=== PATIENT | female | born 1985 | race Caucasian/White ===

== ENCOUNTER 2017-10-08 13:35 | Emergency (ER) | payer OTHER ==
[~2017-10-08] VITALS: Ht 154.9 cm; Wt 47.6 kg
[~2017-10-08 13:35] MED LIST: ALBU90I INH; ALBU90OI INH; AMIT25 PO; AMOX500 PO; Amoxicillin500 MG PO; BUTASPCAFT; Bactrim Ds Tab1 EACH PO; CEPH500 PO; CETI5 PO; CITA20; CITA20 PO; CLIN150 PO; CODGUAEL PO; DOXY100 PO; DULO60 PO; ERYT.5TO OD; ESCI20; ESCI20 PO; FAMO20 PO; FLUO10; HYDACE10B PO; HYDACE5 PO; IBUP600 PO; IBUP800 PO; KETO10 PO; Keflex500 MG PO; LAMO100 PO; LAMO50 PO; LORA1 PO; MEDR10 PO; MEDR150I; MEDR150I IM; MULVITA PO; MULVITMINE; MULVITMINE PO; Macrobid 100 M100 MG PO; NAPR500 PO; NAPR500EC PO; OXYACE5T PO; PANT40; PENVK500 PO; POTA20LUD PO; POTCHL10ER PO; PREN-16 PO; PRENATAL CAPLE1 EACH PO; PRODEXEL PO; PROM25 PO; PROM25S PR; Percocet 5-3251 EACH PO; Prilosec Otc20 MG PO; QUET200 PO; RANI150; RXOXYACE PO; SERT50 PO; SULF10OPSA OS; SULFAMETHOXAZOLE PO; SULTRIDS PO; TRAM50 PO; TRIMETHOPRIM PO; VICODIN; Veetids 500500 MG PO; Verotin-Gr Cap1 EACH PO; [UNRECOGNIZED DRUG - OTHER]; [UNRECOGNIZED DRUG - OTHER] PO
[2017-10-08] MEDS ORDERED: Cleocin HCl150 MG PO (13:48)
== END 2017-10-08 13:59 | disposition home or self-care (01) ==
LOC: ER 13:35
DX: K02.9 Dental caries, unspecified (principal); K04.7 Periapical abscess without sinus; F17.200 Nicotine dependence, unspecified, uncomplicated; Z91.030 Bee allergy status
CPT/HCPCS: 99282

== ENCOUNTER 2018-01-23 20:35 | Emergency (ER) | payer OTHER ==
[~2018-01-23] VITALS: Ht 154.9 cm; Wt 47.6 kg
[~2018-01-23 20:35] MED LIST changes: +Cleocin HCl150 MG PO
[2018-01-23 21:42] LABS: Source, Urine Clean Catch
[2018-01-23 21:45] LABS: Bilirubin, Urine Neg (Neg); Blood, Urine Neg (Neg); Glucose Qualitative, Urine Neg (Neg); Ketones, Urine Neg (Neg); Leukocyte Esterase, Urine 2+ (Neg); Nitrite, Urine Neg (Neg); Protein, Urine Neg (Neg); Urobilinogen, Urine NORM (Normal)
[2018-01-23 21:51] LABS: Appearance, Urine Clear (Clear); Color, Urine Yellow (P-Yellow)
[2018-01-23 21:53] LABS: Bacteria Rare /hpf; Red Blood Cells, Urine Not Seen /hpf (0-2); Squamous Epithelial Cells Mod /hpf (Few)
== END 2018-01-23 22:15 | disposition home or self-care (01) ==
LOC: ER 20:35
PROVIDERS: Physician Assistant
DX: R11.2 Nausea with vomiting, unspecified (principal); R51 Headache; F17.200 Nicotine dependence, unspecified, uncomplicated; Z91.030 Bee allergy status
CPT/HCPCS: 81001; 81025; 87086; 99284; J1885

== ENCOUNTER → 2019-02-21 | Outpatient (CLI) | payer OTHER | END | disposition home or self-care (01) | LOC: LAB SHORT 08:35 → LAB EV 08:35 | DX: R51 Headache (principal) | CPT/HCPCS: 85651 ==

== ENCOUNTER → 2019-10-28 | Outpatient (CLI) | payer BC | END | disposition home or self-care (01) | LOC: LAB SHORT 12:18 → LAB EV 12:18 | DX: L01.00 Impetigo, unspecified (principal) | CPT/HCPCS: 87070; 87075; 87205 ==

== ENCOUNTER → 2020-05-26 | Outpatient (CLI) | payer BC, OTHER ==
[2020-05-26 09:56] LABS: BASOPHILS ABSOLUTE AUTO 0.05 K/mm3 (0.00-0.23); BASOPHILS PERCENT AUTO 1 % (0-2); EOSINOPHILS ABSOLUTE AUTO 0.11 K/mm3 (0.00-0.68); EOSINOPHILS PERCENT AUTO 2 % (0-6); Hematocrit 39.4 % (33.0-51.0); Hemoglobin 13.5 g/dL (11.5-16.0); IMMATURE GRAN ABSOLUTE AUTO 0.01 K/mm3 (0.00-0.10); IMMATURE GRAN PERCENT AUTO 0 % (0-1); LYMPHOCYTES ABSOLUTE AUTO 1.54 K/mm3 (0.84-5.20); LYMPHOCYTES PERCENT AUTO 28 % (21-46); MONOCYTES PERCENT AUTO 9 % (4-13); Mean Corpuscular HGB 31.7 pg (26.0-34.0); Mean Corpuscular HGB Conc 34.3 g/dL (31.5-36.5); Mean Corpuscular Volume 93 fL (80-100); Mean Platelet Volume 10.2 fL (9.1-12.4); NEUTROPHILS ABSOLUTE AUTO 3.37 K/mm3 (1.96-9.15); NEUTROPHILS PERCENT AUTO 60 % (41-73); Platelet Count 186 K/mm3 (150-400); RDW Coefficient Variation 12.3 % (11.7-14.2); RDW Standard Deviation 41.6 fL (35.1-46.3); Red Blood Cell Count 4.26 M/mm3 (3.80-5.20); White Blood Cell Count 5.58 K/mm3 (4.00-11.30)
== END | disposition home or self-care (01) ==
LOC: LAB SHORT 09:49 → PLD 09:49
PROVIDERS: Family Medicine
DX: N64.3 Galactorrhea not associated with childbirth (principal); R53.83 Other fatigue
CPT/HCPCS: 84146; 84443; 85025

== ENCOUNTER → 2021-09-27 | Outpatient (CLI) | payer BC, OTHER ==
[2021-09-27 14:56] LABS: BASOPHILS ABSOLUTE AUTO 0.03 K/mm3 (0.00-0.23); BASOPHILS PERCENT AUTO 0 % (0-2); EOSINOPHILS ABSOLUTE AUTO 0.09 K/mm3 (0.00-0.68); EOSINOPHILS PERCENT AUTO 1 % (0-6); Hematocrit 40.6 % (33.0-51.0); Hemoglobin 13.5 g/dL (11.5-16.0); IMMATURE GRAN ABSOLUTE AUTO 0.02 K/mm3 (0.00-0.10); IMMATURE GRAN PERCENT AUTO 0 % (0-1); LYMPHOCYTES ABSOLUTE AUTO 1.75 K/mm3 (0.84-5.20); LYMPHOCYTES PERCENT AUTO 24 % (21-46); MONOCYTES ABSOLUTE AUTO 0.58 K/mm3 (0.16-1.47); MONOCYTES PERCENT AUTO 8 % (4-13); Mean Corpuscular HGB 31.2 pg (26.0-34.0); Mean Corpuscular HGB Conc 33.3 g/dL (31.5-36.5); Mean Corpuscular Volume 94 fL (80-100); Mean Platelet Volume 10.6 fL (9.1-12.4); NEUTROPHILS ABSOLUTE AUTO 4.75 K/mm3 (1.96-9.15); NEUTROPHILS PERCENT AUTO 66 % (41-73); Platelet Count 199 K/mm3 (150-400); RDW Coefficient Variation 12.3 % (11.7-14.2); RDW Standard Deviation 42.5 fL (35.1-46.3); Red Blood Cell Count 4.33 M/mm3 (3.80-5.20); White Blood Cell Count 7.22 K/mm3 (4.00-11.30)
[2021-09-27 15:14] LABS: Alanine Aminotransfer (ALT/SGP 23 U/L (12-78); Albumin, Blood 4.3 g/dL (3.4-5.0); Albumin/Globulin Ratio 1.4 (0.8-1.8); Alk Phos 32 U/L (40-126); Anion Gap 11 mmol/L (6-16); Aspartate Aminotrans (AST/SGOT 17 U/L (12-37); Bilirubin, Total 0.5 mg/dL (0.1-1.0); Blood Urea Nitrogen 8 mg/dL (8-24); Bun/Creatinine Ratio 11.6 (12.0-20.0); CO2, Blood 25 mmol/L (21-32); Calcium, Blood 9.2 mg/dL (8.5-10.1); Chloride, Blood 105 mmol/L (98-108); Creatinine, Blood 0.69 mg/dL (0.40-1.00); Free Thyroxine 1.07 ng/dL (0.70-1.60); Globulin, Blood 3.1 g/dL (2.2-4.0); Glomerular Filtration Rate >60 (60-); Glucose, Blood 84 mg/dL (70-99); Potassium, Blood 4.3 mmol/L (3.5-5.5); Sodium, Blood 141 mmol/L (136-145); Thyroid Stimulating Hormone 0.813 uIU/mL (0.360-4.800); Total Protein, Blood 7.4 g/dL (6.4-8.2)
== END ==
LOC: LAB SHORT 14:47
PROVIDERS: General Practice
DX: R53.81 Other malaise (principal); R20.9 Unspecified disturbances of skin sensation
CPT/HCPCS: 80053; 84439; 84443; 85025

== ENCOUNTER → 2022-09-04 | Outpatient (CLI) | payer OTHER ==
[~2022-09-04] MED LIST changes: +PRENATAL TABLE1 EAC2 PO
[2022-09-07 06:10] LABS: HSV-1 DNA Negative (Negative); HSV-2 DNA Positive (Negative)
== END | disposition home or self-care (01) ==
LOC: LAB SHORT 15:10 → LAB 15:10
PROVIDERS: Physician Assistant
DX: L03.011 Cellulitis of right finger (principal)
CPT/HCPCS: 87070; 87075; 87205; 87529

== ENCOUNTER 2023-02-14 08:08 | Inpatient (IN) | payer OTHER ==
[~2023-02-14] VITALS: Ht 157.5 cm; Wt 56.2 kg
[2023-02-14] VITALS (27 sets, daily range): BP systolic 88–120; BP diastolic 51–88
[2023-02-14 08:41] LABS: BASOPHILS ABSOLUTE AUTO 0.06 K/mm3 (0.00-0.23); BASOPHILS PERCENT AUTO 1 % (0-2); EOSINOPHILS ABSOLUTE AUTO 0.11 K/mm3 (0.00-0.68); EOSINOPHILS PERCENT AUTO 1 % (0-6); Hematocrit 35.3 % (33.0-51.0); IMMATURE GRAN ABSOLUTE AUTO 0.16 K/mm3 (0.00-0.10); IMMATURE GRAN PERCENT AUTO 2 % (0-1); LYMPHOCYTES ABSOLUTE AUTO 2.24 K/mm3 (0.84-5.20); LYMPHOCYTES PERCENT AUTO 21 % (21-46); MONOCYTES ABSOLUTE AUTO 0.79 K/mm3 (0.16-1.47); MONOCYTES PERCENT AUTO 7 % (4-13); Mean Corpuscular HGB 33.3 pg (26.0-34.0); Mean Corpuscular Volume 98 fL (80-100); Mean Platelet Volume 10.3 fL (9.1-12.4); NEUTROPHILS ABSOLUTE AUTO 7.28 K/mm3 (1.96-9.15); NEUTROPHILS PERCENT AUTO 68 % (41-73); Platelet Count 143 K/mm3 (150-400); RDW Coefficient Variation 13.5 % (11.7-14.2); RDW Standard Deviation 48.5 fL (35.1-46.3); White Blood Cell Count 10.64 K/mm3 (4.00-11.30)
[2023-02-14] MEDS ORDERED: OMEP20ER PO (08:51)
[2023-02-14] MEDS ORDERED: Calcium Carbon500 MG PO (08:51)
[2023-02-14] MEDS ORDERED: IRON18 MG PO (08:51)
[2023-02-14] MEDS ORDERED: ACYC400 PO (09:50)
--- NOTE | 2023-02-14 12:12 | NUR ---
02/14/23 1212 SebastienOlena M VIABLE MALE DELIVERED VIA REPEAT SECTION AT 1157. CORD SEGMENT COLLECTED FOR CORD GASSES AND GIVEN TO RT DAYAMI. CORD BLOOD COLLECTED FOR TYPING AND GIVEN TO SHAKIRA LYNN RN. APGARS 9/9. 7-1 LBS/3205 GRAMS, 20 IN LONG, 13.75 IN HEAD, 12.75 IN CHEST.
[2023-02-14 12:13] LABS: PCO2 Cord - Arterial 60.2 mmHg (40-50); PO2 Cord - Arterial < 16 mmHg (16-20); pH Cord - Arterial 7.26 (7.28-7.35)
[2023-02-14 12:16] LABS: PO2 Cord - Venous 33.8 mmHg (28-32); pH Umbilical Cord - Venous 7.34 (7.26-7.35)
--- NOTE | 2023-02-14 19:17 | NUR ---
REPORT TO ONCOMING SHIFT. PT DOING WELL AND HAS NO COMPLAINTS. VSS. PAIN WELL CONTROLLED WITH MEDS. LOCHIA SCANT.
[2023-02-15 01:00] VITALS: BP 97/58
[2023-02-15 05:51] VITALS: BP 87/51
[2023-02-15 06:30] LABS: BASOPHILS ABSOLUTE AUTO 0.04 K/mm3 (0.00-0.23); BASOPHILS PERCENT AUTO 0 % (0-2); EOSINOPHILS ABSOLUTE AUTO 0.08 K/mm3 (0.00-0.68); EOSINOPHILS PERCENT AUTO 1 % (0-6); Hematocrit 29.3 % (33.0-51.0); Hemoglobin 9.8 g/dL (11.5-16.0); IMMATURE GRAN ABSOLUTE AUTO 0.09 K/mm3 (0.00-0.10); IMMATURE GRAN PERCENT AUTO 1 % (0-1); LYMPHOCYTES ABSOLUTE AUTO 1.97 K/mm3 (0.84-5.20); LYMPHOCYTES PERCENT AUTO 14 % (21-46); MONOCYTES ABSOLUTE AUTO 1.08 K/mm3 (0.16-1.47); MONOCYTES PERCENT AUTO 8 % (4-13); Mean Corpuscular HGB 33.2 pg (26.0-34.0); Mean Corpuscular HGB Conc 33.4 g/dL (31.5-36.5); Mean Corpuscular Volume 99 fL (80-100); Mean Platelet Volume 10.5 fL (9.1-12.4); NEUTROPHILS ABSOLUTE AUTO 10.41 K/mm3 (1.96-9.15); NEUTROPHILS PERCENT AUTO 76 % (41-73); Platelet Count 148 K/mm3 (150-400); RDW Coefficient Variation 13.6 % (11.7-14.2); RDW Standard Deviation 49.7 fL (35.1-46.3); Red Blood Cell Count 2.95 M/mm3 (3.80-5.20); White Blood Cell Count 13.67 K/mm3 (4.00-11.30)
[2023-02-15 08:39] VITALS: BP 93/54
[2023-02-15 11:00] VITALS: BP 97/48
[2023-02-15] MEDS ORDERED: IBU800 MG PO (14:56)
[2023-02-15] MEDS ORDERED: PROM25 PO (14:57)
[2023-02-15] MEDS ORDERED: Percocet 5-3251 EACH PO (14:57)
== END 2023-02-15 15:20 | disposition home or self-care (01) | DRG 784 ==
LOC: BC 08:08
PROVIDERS: ADMIT Obstetrics & Gynecology
PROC: 0UN70ZZ Release Bilateral Fallopian Tubes, Open Approach (ICD-10-PCS; 2023-02-14)
PROC: 4A033R1 Measurement of Arterial Saturation, Peripheral, Percutaneous Approach (ICD-10-PCS; 2023-02-14)
PROC: 10D00Z1 Extraction of Products of Conception, Low, Open Approach (ICD-10-PCS; principal; 2023-02-14 11:15)
PROC: 0UB70ZZ Excision of Bilateral Fallopian Tubes, Open Approach (ICD-10-PCS; 2023-02-14 11:15)
DX: O34.211 Maternal care for low transverse scar from previous cesarean delivery (principal); O98.32 Other infections with a predominantly sexual mode of transmission complicating childbirth; Z3A.39 39 weeks gestation of pregnancy; Z37.0 Single live birth; O34.83 Maternal care for other abnormalities of pelvic organs, third trimester; N73.6 Female pelvic peritoneal adhesions (postinfective); A60.09 Herpesviral infection of other urogenital tract; Z30.2 Encounter for sterilization
CPT/HCPCS: 36415; 82803; 85025; 86850; 86900; 86901; 86923; 88302; A9270; J0690; J1885; J2210; J2590; J2704; J2765; J3010; J7120

== ENCOUNTER → 2023-02-18 | Outpatient (CLI) | payer OTHER ==
[~2023-02-18] MED LIST changes: +ACYC400 PO; +Calcium Carbon500 MG PO; +IBU800 MG PO; +IRON18 MG PO; +OMEP20ER PO
[2023-02-18 16:51] LABS: BASOPHILS ABSOLUTE AUTO 0.04 K/mm3 (0.00-0.23); BASOPHILS PERCENT AUTO 1 % (0-2); EOSINOPHILS ABSOLUTE AUTO 0.21 K/mm3 (0.00-0.68); EOSINOPHILS PERCENT AUTO 3 % (0-6); Hematocrit 29.2 % (33.0-51.0); Hemoglobin 9.7 g/dL (11.5-16.0); IMMATURE GRAN ABSOLUTE AUTO 0.05 K/mm3 (0.00-0.10); IMMATURE GRAN PERCENT AUTO 1 % (0-1); LYMPHOCYTES ABSOLUTE AUTO 1.97 K/mm3 (0.84-5.20); LYMPHOCYTES PERCENT AUTO 24 % (21-46); MONOCYTES ABSOLUTE AUTO 0.51 K/mm3 (0.16-1.47); MONOCYTES PERCENT AUTO 6 % (4-13); Mean Corpuscular HGB 32.8 pg (26.0-34.0); Mean Corpuscular HGB Conc 33.2 g/dL (31.5-36.5); Mean Corpuscular Volume 99 fL (80-100); Mean Platelet Volume 9.8 fL (9.1-12.4); NEUTROPHILS ABSOLUTE AUTO 5.51 K/mm3 (1.96-9.15); NEUTROPHILS PERCENT AUTO 66 % (41-73); Platelet Count 214 K/mm3 (150-400); RDW Coefficient Variation 13.9 % (11.7-14.2); Red Blood Cell Count 2.96 M/mm3 (3.80-5.20); White Blood Cell Count 8.29 K/mm3 (4.00-11.30)
[2023-02-18 17:06] LABS: Albumin, Blood 2.4 g/dL (3.4-5.0); Albumin/Globulin Ratio 0.8 (0.8-1.8); Bilirubin, Total 0.4 mg/dL (0.1-1.0); Calcium, Blood 8.6 mg/dL (8.5-10.1); Creatinine, Blood 0.47 mg/dL (0.40-1.00); Globulin, Blood 3.2 g/dL (2.2-4.0); Potassium, Blood 3.7 mmol/L (3.5-5.5); Total Protein, Blood 5.6 g/dL (6.4-8.2)
[2023-02-18 17:32] LABS: International Normalized Ratio 0.98; Prothrombin Time Results 10.3 Sec (9.7-11.5)
== END | disposition home or self-care (01) ==
LOC: LAB SHORT 16:47 → LAB 16:47
PROVIDERS: Family Medicine
DX: R10.9 Unspecified abdominal pain (principal)
CPT/HCPCS: 80053; 85025; 85610

== ENCOUNTER 2023-11-03 10:41 | Emergency (ER) | payer OTHER ==
[~2023-11-03] VITALS: Ht 157.5 cm; Wt 47.6 kg
[2023-11-03 10:49] VITALS: BP 116/88
[2023-11-03] MEDS ORDERED: Prochlorperazine Edisylate 10 mg Vial IV ONE (12:15)
[2023-11-03] MEDS ORDERED: Ketorolac Tromethamine 15mg Vial IV ONE (12:15)
[2023-11-03] MEDS ORDERED: NS 1,000 ML IV SCH (12:15)
[2023-11-03] MEDS ORDERED: DiphenhydrAMINE HCl 50 MG/ML 1ML Vial IV ONE (12:15)
[2023-11-03] MEDS ORDERED: Dexamethasone Sod Phos 10 MG/ML 1ML VIAL IV ONE (12:15)
[2023-11-03] MEDS ORDERED: SUMA25 PO (13:19)
== END 2023-11-03 13:33 | disposition home or self-care (01) ==
LOC: ER 10:41
DX: R51.9 Headache, unspecified (principal); Z91.030 Bee allergy status; Z79.899 Other long term (current) drug therapy; Z87.891 Personal history of nicotine dependence
CPT/HCPCS: 96361; 96374; 96375; 99283-25; J0780; J1100; J1200; J1885; J7030

== ENCOUNTER → 2023-12-21 | Outpatient (CLI) | payer OTHER ==
[~2023-12-21] MED LIST changes: +SUMA25 PO
[2023-12-21 11:29] LABS: BASOPHILS ABSOLUTE AUTO 0.02 K/mm3 (0.00-0.23); BASOPHILS PERCENT AUTO 0 % (0-2); EOSINOPHILS ABSOLUTE AUTO 0.07 K/mm3 (0.00-0.68); EOSINOPHILS PERCENT AUTO 2 % (0-6); Hematocrit 37.9 % (33.0-51.0); Hemoglobin 12.8 g/dL (11.5-16.0); Mean Corpuscular HGB 31.2 pg (26.0-34.0); Mean Corpuscular HGB Conc 33.8 g/dL (31.5-36.5); Mean Corpuscular Volume 92 fL (80-100); Mean Platelet Volume 9.6 fL (9.1-12.4); Platelet Count 211 K/mm3 (150-400); RDW Coefficient Variation 12.1 % (11.7-14.2); White Blood Cell Count 4.77 K/mm3 (4.00-11.30)
[2023-12-21 11:39] LABS: IMMATURE GRAN ABSOLUTE AUTO 0.02 K/mm3 (0.00-0.10); IMMATURE GRAN PERCENT AUTO 0 % (0-1); LYMPHOCYTES ABSOLUTE AUTO 1.17 K/mm3 (0.84-5.20); LYMPHOCYTES PERCENT AUTO 25 % (21-46); MONOCYTES ABSOLUTE AUTO 0.33 K/mm3 (0.16-1.47); MONOCYTES PERCENT AUTO 7 % (4-13); NEUTROPHILS ABSOLUTE AUTO 3.16 K/mm3 (1.96-9.15); NEUTROPHILS PERCENT AUTO 66 % (41-73)
[2023-12-21 11:48] LABS: Albumin, Blood 3.8 g/dL (3.4-5.0); Albumin/Globulin Ratio 1.1 (0.8-1.8); Bilirubin, Total 0.5 mg/dL (0.1-1.0); Bun/Creatinine Ratio 12.7 (12.0-20.0); Calcium, Blood 8.7 mg/dL (8.5-10.1); Creatinine, Blood 0.63 mg/dL (0.40-1.00); Globulin, Blood 3.4 g/dL (2.2-4.0); Potassium, Blood 3.7 mmol/L (3.5-5.5); Thyroid Stimulating Hormone 0.646 uIU/mL (0.360-4.800); Total Protein, Blood 7.2 g/dL (6.4-8.2)
== END ==
LOC: LAB SHORT 11:25 → LAB 11:25
PROVIDERS: Physician Assistant Surgical
DX: R22.43 Localized swelling, mass and lump, lower limb, bilateral (principal)
CPT/HCPCS: 80053; 84443; 85025

== ENCOUNTER 2024-06-28 05:35 | Day surgery (SDC) | payer OTHER ==
[~2024-06-28] VITALS: Ht 157 cm; Wt 53.5 kg
[2024-06-28] VITALS (17 sets, daily range): BP systolic 104–127; BP diastolic 63–92
[~2024-06-28 05:35] MED LIST changes: +DESVENLAFAXINE50 M3 PO; +MELATONIN PO; +Valtrex500 MG PO
[2024-06-28] MEDS ORDERED: CeFAZolin Sodium 2,000 MG in NS 100 ML IV SCH ×2 (06:20→14:00)
[2024-06-28] MEDS ORDERED: Lactated Ringer's 1,000 ML IV SCH ×2 (06:20→10:50)
[2024-06-28] MEDS ORDERED: Bupivacaine 0.5% HCl 5 MG/ML 30MLVIAL ONE (07:13)
[2024-06-28] MEDS ORDERED: Midazolam HCl 1MG / ML 2ML Vial ONE (07:28)
[2024-06-28] MEDS ORDERED: Midazolam HCl 1MG / ML 2ML Vial IV ONE (07:30)
[2024-06-28] MEDS ORDERED: Ondansetron HCl 2 MG / ML 2ML Vial ONE (07:34)
[2024-06-28] MEDS ORDERED: Ketorolac Tromethamine 30mg Vial ONE (07:34)
[2024-06-28] MEDS ORDERED: Lidocaine HCl 2% 20 ML MDV ONE (07:34)
[2024-06-28] MEDS ORDERED: FentaNYL Citrate 50 MCG/ML 5 ML Injection ONE (07:34)
[2024-06-28] MEDS ORDERED: Dexamethasone Sod Phos 10 MG/ML 1ML VIAL ONE (07:34)
[2024-06-28] MEDS ORDERED: propofoL 20 ML IV ONE (07:34)
[2024-06-28] MEDS ORDERED: Rocuronium Bromide 10 MG/ML 5ML Injection IV ONE ×2 (07:34→09:01)
[2024-06-28] MEDS ORDERED: Promethazine HCl 25 MG Tab PO PRN (07:55)
[2024-06-28] MEDS ORDERED: Melatonin 1 MG Tablet PO PRN (07:55)
[2024-06-28] MEDS ORDERED: Magnesium Sulfate 500 MG / ML 2ML Vial ONE (07:57)
[2024-06-28] MEDS ORDERED: Droperidol 5 mg/2 ml Vial IV PRN (08:00)
[2024-06-28] MEDS ORDERED: HYDROmorphone HCl/Pf 1MG SYR IV PRN ×2 (08:00→10:50)
[2024-06-28] MEDS ORDERED: Albuterol 2.5 MG/3 ML VIAL INH PRN (08:00)
[2024-06-28] MEDS ORDERED: FentaNYL Citrate 50 MCG/ML 2 ML Injection IV PRN (08:00)
[2024-06-28] MEDS ORDERED: Nicotine 7 MG PATCH TOP SCH (09:00)
[2024-06-28] MEDS ORDERED: HYDROmorphone HCl/Pf 1MG SYR ONE ×3 (09:45→10:45)
[2024-06-28] MEDS ORDERED: Sugammadex Sodium 200 MG/2ML SDV (100 MG/ML) ONE (09:45)
[2024-06-28] MEDS ORDERED: Droperidol 5 mg/2 ml Vial ONE (10:27)
[2024-06-28] MEDS ORDERED: Simethicone 80 MG Chew PO PRN (10:45)
[2024-06-28] MEDS ORDERED: FLU VACC TS2024-25(6MOS UP)/PF 45 MCG/0.5 ML SYRINGE IM SCH (10:50)
[2024-06-28] MEDS ORDERED: Promethazine HCl 12.5 MG Supp PR PRN (10:50)
[2024-06-28] MEDS ORDERED: Ondansetron HCl 2 MG / ML 2ML Vial IV PRN (10:50)
[2024-06-28] MEDS ORDERED: Naloxone HCl 0.4MG / ML 1ML Vial IV PRN (10:50)
[2024-06-28] MEDS ORDERED: Ondansetron 4 MG TAB PO PRN (10:55)
[2024-06-28] MEDS ORDERED: OxyCODONE 5 mg/Acetamin 325 mg TABLET PO PRN (10:55)
[2024-06-28] MEDS ORDERED: Ketorolac Tromethamine 30mg Vial IV PRN (11:00)
--- NOTE | 2024-06-28 11:32 | NUR ---
PT ARRIVED TO UNIT FROM PACU TRANSFERRED PT TO BED FROM [facility]. PT SLEEPING SOUNDLY. RR 11 ON 2L NC W/SATS OF 100%. PT WAKES BRIEFLY TO VOICE AND THEN RETURNS TO SLEEP. CALL LIGHT IN REACH. LAP INCISIONS X4 TO ABD W/TISS ADHESIVE CDI. SCANT AMT VAG BLEEDING NOTED. WATER PROVIDED.
[2024-06-28] MEDS ORDERED: MELATONIN1 M1 PO (15:47)
[2024-06-28] MEDS ORDERED: PROM25 PO (15:49)
[2024-06-28] MEDS ORDERED: Percocet 5-3251 EACH PO (15:50)
[2024-06-28] MEDS ORDERED: SIME80CH PO (15:51)
--- NOTE | 2024-06-28 17:19 | NUR ---
SUMMARY PT POD 0 TOTAL ROBOTIC LAP HYSTER. LAP INCISIONS X4 TO ABD W/TISS ADHESIVE CDI. ABD BINDER IN PLACE PER ORDERS. PT NOTED TO HAVE LIGHT AMOUNT VAGINAL BLEEDING. PT VOIDED 200 ML DARK YELLOW URINE. IV FLUIDS INFUSING PER ORDERS. PT BECAME NAUSETED AND HAD 50 ML CLEAR EMESIS. MEDICATED PER ORDERS FOR NAUSEA. PT ALSO PAINFUL AT SAME TIME. MEDICATED W/0.5MG IV DILAUDID D/T N/V AND BEING UNABLE TO TAKE PO PAIN MEDS. PT HAS HAD MINIMAL PO INTAKE AT THIS TIME. UPON REASSESSMENT, PT REPORTS NAUSEA AND PAIN BOTH IMPROVED. RESTING IN BED W/CALL LIGHT IN REACH.
--- NOTE | 2024-06-29 04:48 | NUR ---
SHIFT SUMMARY POD 1 SAMANTHA TOTAL LAP HYSTER PT RESTLESS T/O NIGHT. PT HAD MIGRAINE DURING THE NIGHT, ALSO WAS VERY NAUSEOUS. PAIN AND NAUSEA ARE UNDER CONTROL THIS MORNING. PT IND IN THE ROOM. PT TOLERATING VERY SMALL AMOUNTS OF PO INTAKE AT THIS TIME. X4 LAP SITES CLOSED WITH WG ARE C/D/I. VSS. NO OTHER CONCERNS AT THIS TIME, CALL LIGHT WITHIN REACH
[2024-06-29 04:58] LABS: BASOPHILS ABSOLUTE AUTO 0.01 K/mm3 (0.00-0.23); BASOPHILS PERCENT AUTO 0 % (0-2); EOSINOPHILS PERCENT AUTO 0 % (0-6); Hematocrit 34.5 % (33.0-51.0); Hemoglobin 11.4 g/dL (11.5-16.0); IMMATURE GRAN ABSOLUTE AUTO 0.01 K/mm3 (0.00-0.10); IMMATURE GRAN PERCENT AUTO 0 % (0-1); LYMPHOCYTES ABSOLUTE AUTO 0.44 K/mm3 (0.84-5.20); LYMPHOCYTES PERCENT AUTO 11 % (21-46); MONOCYTES ABSOLUTE AUTO 0.37 K/mm3 (0.16-1.47); MONOCYTES PERCENT AUTO 9 % (4-13); Mean Corpuscular HGB 32.5 pg (26.0-34.0); Mean Corpuscular Volume 98 fL (80-100); Mean Platelet Volume 9.7 fL (9.1-12.4); NEUTROPHILS ABSOLUTE AUTO 3.28 K/mm3 (1.96-9.15); NEUTROPHILS PERCENT AUTO 80 % (41-73); Platelet Count 146 K/mm3 (150-400); RDW Coefficient Variation 12.1 % (11.7-14.2); RDW Standard Deviation 43.8 fL (35.1-46.3); Red Blood Cell Count 3.51 M/mm3 (3.80-5.20); White Blood Cell Count 4.11 K/mm3 (4.00-11.30)
[2024-06-29 05:00] VITALS: BP 105/76
[2024-06-29 07:01] VITALS: BP 108/73
[2024-06-29] MEDS ORDERED: ValACYClovir HCL 500 MG Tab PO SCH (09:00)
[2024-06-29] MEDS ORDERED: Venlafaxine HCl 75 MG CapCR PO SCH (09:00)
[2024-06-29] MEDS ORDERED: Scopolamine Hydrobromide Patch TD ONE (09:45)
--- NOTE | 2024-06-29 11:48 | NUR ---
WONDERLY IN TO SEE PT. PT WISHES TO DISCHARGE. WONDERLY TO PUT ORDERS IN.
[2024-06-29 12:26] VITALS: BP 107/81
--- NOTE | 2024-06-29 12:27 | NUR ---
DISCHARGING DR DUARTE APPROVED PT BEING DISCHARGED. VSS. IV DC'D, CATHETER INTACT. REVIEWED DC INSTRUCTIONS W/PT; VERBALIZED UNDERSTANDING. PT GETTING DRESSED AND CALLING RIDE.
== END 2024-06-29 13:17 | disposition home or self-care (01) ==
LOC: ORSCMMR 05:35 → ORD 07:30 → ORSCMMR 07:30 → SURS 11:12 → ORSCMMR 06-29 13:17
PROVIDERS: Obstetrics & Gynecology
PROC: 0U5F4ZZ Destruction of Cul-de-sac, Percutaneous Endoscopic Approach (ICD-10-PCS; principal; 2024-06-28 07:30)
PROC: 0UT9FZZ Resection of Uterus, Via Natural or Artificial Opening With Percutaneous Endoscopic Assistance (ICD-10-PCS; principal; 2024-06-28 07:30)
DX: N92.1 Excessive and frequent menstruation with irregular cycle (principal); D50.0 Iron deficiency anemia secondary to blood loss (chronic); N94.6 Dysmenorrhea, unspecified; N94.12 Deep dyspareunia; R10.2 Pelvic and perineal pain; N73.6 Female pelvic peritoneal adhesions (postinfective); F17.210 Nicotine dependence, cigarettes, uncomplicated; F41.9 Anxiety disorder, unspecified; F31.9 Bipolar disorder, unspecified; Z79.899 Other long term (current) drug therapy
CPT/HCPCS: 36415; 85025; 86850; 86900; 86901; 88307; A9270; J0690; J1100; J1171; J1790; J1885; J2250; J2405; J2704; J3010; J3475; J7120

== ENCOUNTER 2024-07-19 17:15 | Emergency (ER) | payer OTHER ==
[~2024-07-19] VITALS: Ht 157.5 cm; Wt 53.1 kg
[~2024-07-19 17:15] MED LIST changes: -DICY20 PO; -ONDA4 PO
[2024-07-19 18:12] LABS: Source, Urine Clean Catch
[2024-07-19 18:19] LABS: Bilirubin, Urine Neg (Neg); Blood, Urine Neg (Neg); Color, Urine Yellow (P-Yellow); Glucose Qualitative, Urine Neg (Neg); Ketones, Urine Neg (Neg); Leukocyte Esterase, Urine 1+ (Neg); Nitrite, Urine Neg (Neg); Protein, Urine Neg (Neg); Urobilinogen, Urine NORM (Normal)
[2024-07-19 18:26] LABS: BASOPHILS ABSOLUTE AUTO 0.05 K/mm3 (0.00-0.23); BASOPHILS PERCENT AUTO 1 % (0-2); EOSINOPHILS ABSOLUTE AUTO 0.43 K/mm3 (0.00-0.68); EOSINOPHILS PERCENT AUTO 6 % (0-6); Hemoglobin 13.4 g/dL (11.5-16.0); IMMATURE GRAN ABSOLUTE AUTO 0.04 K/mm3 (0.00-0.10); IMMATURE GRAN PERCENT AUTO 1 % (0-1); LYMPHOCYTES ABSOLUTE AUTO 2.22 K/mm3 (0.84-5.20); LYMPHOCYTES PERCENT AUTO 30 % (21-46); MONOCYTES ABSOLUTE AUTO 0.46 K/mm3 (0.16-1.47); MONOCYTES PERCENT AUTO 6 % (4-13); Mean Corpuscular HGB 31.9 pg (26.0-34.0); Mean Corpuscular HGB Conc 33.5 g/dL (31.5-36.5); Mean Corpuscular Volume 95 fL (80-100); Mean Platelet Volume 9.4 fL (9.1-12.4); NEUTROPHILS ABSOLUTE AUTO 4.23 K/mm3 (1.96-9.15); NEUTROPHILS PERCENT AUTO 57 % (41-73); Platelet Count 237 K/mm3 (150-400); RDW Coefficient Variation 11.8 % (11.7-14.2); RDW Standard Deviation 40.9 fL (35.1-46.3); White Blood Cell Count 7.43 K/mm3 (4.00-11.30)
[2024-07-19 18:32] LABS: Appearance, Urine Hazy (Clear); Bacteria Mod /hpf; Red Blood Cells, Urine 0-2 /hpf (0-2)
[2024-07-19 18:33] LABS: Mucus Light (0-Heavy); Squamous Epithelial Cells Few /hpf (Few); Transitional Epithelial Cells Rare /hpf (0-Rare)
[2024-07-19 19:20] LABS: Albumin/Globulin Ratio 1.2 (0.8-1.8); Bilirubin, Total 0.5 mg/dL (0.1-1.0); Bun/Creatinine Ratio 17.5 (12.0-20.0); Calcium, Blood 9.3 mg/dL (8.5-10.1); Creatinine, Blood 0.63 mg/dL (0.40-1.00); Globulin, Blood 3.3 g/dL (2.2-4.0); Total Protein, Blood 7.3 g/dL (6.4-8.2)
[2024-07-19] MEDS ORDERED: Ondansetron HCl 2 MG / ML 2ML Vial IV ONE (19:35)
[2024-07-19] MEDS ORDERED: Morphine Sulfate 4 MG/1 ML Injection IV ONE (19:35)
[2024-07-19] MEDS ORDERED: IBUP600 PO (19:37)
[2024-07-19 21:15] VITALS: BP 109/74
[2024-07-19] MEDS ORDERED: DICY20 PO (21:25)
[2024-07-19] MEDS ORDERED: ONDA4 PO (21:25)
== END 2024-07-19 21:32 | disposition home or self-care (01) ==
LOC: ER 17:15
PROVIDERS: Physician Assistant
DX: K29.70 Gastritis, unspecified, without bleeding (principal); G43.909 Migraine, unspecified, not intractable, without status migrainosus; F17.210 Nicotine dependence, cigarettes, uncomplicated; Z91.030 Bee allergy status; Z88.8 Allergy status to other drugs, medicaments and biological substances; Z79.899 Other long term (current) drug therapy; Z90.710 Acquired absence of both cervix and uterus
CPT/HCPCS: 74177; 80053; 81001; 85025; 87086; 93005; 93010; 96374-59; 96375; 99284-25; J2270; J2405; Q9967

== ENCOUNTER → 2024-07-19 | Outpatient (CLI) | payer OTHER ==
[~2024-07-19] MED LIST changes: +DICY20 PO; +MELATONIN1 M1 PO; +ONDA4 PO; +SIME80CH PO
== END | disposition home or self-care (01) ==
LOC: LAB SHORT 17:11 → LAB 17:11
DX: R82.90 Unspecified abnormal findings in urine (principal)
CPT/HCPCS: 87086

== ENCOUNTER 2024-09-08 16:36 | Emergency (ER) | payer OTHER ==
[~2024-09-08] VITALS: Ht 157.5 cm; Wt 52.2 kg
[~2024-09-08 16:36] MED LIST changes: +DICY20 PO; +METR500 PO; +ONDA4 PO
[2024-09-08 17:24] VITALS: BP 118/79
[2024-09-08] MEDS ORDERED: Acetaminophen 500 MG Tab PO ONE (17:25)
[2024-09-08] MEDS ORDERED: DiphenhydrAMINE HCl 50 MG/ML 1ML Vial IV ONE (17:30)
[2024-09-08] MEDS ORDERED: Prochlorperazine Edisylate 10 mg Vial IV ONE (17:30)
[2024-09-08] MEDS ORDERED: Dexamethasone Sod Phos 10 MG/ML 1ML VIAL PO ONE (17:30)
[2024-09-08] MEDS ORDERED: Ketorolac Tromethamine 15mg Vial IV ONE (17:30)
[2024-09-08] MEDS ORDERED: PROM25 PO (18:25)
== END 2024-09-08 19:00 | disposition home or self-care (01) ==
LOC: ER 16:36
DX: R51.9 Headache, unspecified (principal); Z88.8 Allergy status to other drugs, medicaments and biological substances; Z91.030 Bee allergy status; Z79.899 Other long term (current) drug therapy
CPT/HCPCS: 96374; 96375; 99283-25; A9270; J0780; J1100; J1200; J1885

== ENCOUNTER 2024-09-15 10:49 | Emergency (ER) | payer OTHER ==
[~2024-09-15] VITALS: Ht 157.5 cm; Wt 54.4 kg
[2024-09-15 10:57] VITALS: BP 124/78
[2024-09-15] MEDS ORDERED: Dexamethasone Sod Phos 10 MG/ML 1ML VIAL PO ONE (11:05)
[2024-09-15] MEDS ORDERED: Prochlorperazine Edisylate 10 mg Vial IV ONE (11:05)
[2024-09-15] MEDS ORDERED: DiphenhydrAMINE HCl 50 MG/ML 1ML Vial IV ONE (11:05)
[2024-09-15] MEDS ORDERED: Ketorolac Tromethamine 15mg Vial IV ONE (11:05)
== END 2024-09-15 12:37 | disposition home or self-care (01) ==
LOC: ER 10:49
DX: G43.909 Migraine, unspecified, not intractable, without status migrainosus (principal); Z91.030 Bee allergy status; Z88.8 Allergy status to other drugs, medicaments and biological substances; Z79.631 Long term (current) use of antimetabolite agent; Z79.899 Other long term (current) drug therapy
CPT/HCPCS: 96374; 96375; 99283-25; J0780; J1100; J1200; J1885

== ENCOUNTER 2024-10-13 19:37 | Inpatient (IN) | payer OTHER ==
[~2024-10-13] VITALS: Ht 160 cm; Wt 51.9 kg
[2024-10-13 19:56] LABS: BASOPHILS ABSOLUTE AUTO 0.06 K/mm3 (0.00-0.23); BASOPHILS PERCENT AUTO 1 % (0-2); EOSINOPHILS PERCENT AUTO 2 % (0-6); Hematocrit 40.3 % (33.0-51.0); Hemoglobin 13.3 g/dL (11.5-16.0); IMMATURE GRAN ABSOLUTE AUTO 0.02 K/mm3 (0.00-0.10); IMMATURE GRAN PERCENT AUTO 0 % (0-1); LYMPHOCYTES ABSOLUTE AUTO 1.52 K/mm3 (0.84-5.20); LYMPHOCYTES PERCENT AUTO 24 % (21-46); MONOCYTES ABSOLUTE AUTO 0.29 K/mm3 (0.16-1.47); MONOCYTES PERCENT AUTO 5 % (4-13); Mean Corpuscular Volume 97 fL (80-100); Mean Platelet Volume 9.4 fL (9.1-12.4); NEUTROPHILS ABSOLUTE AUTO 4.32 K/mm3 (1.96-9.15); NEUTROPHILS PERCENT AUTO 68 % (41-73); Platelet Count 236 K/mm3 (150-400); RDW Coefficient Variation 12.8 % (11.7-14.2); RDW Standard Deviation 45.6 fL (35.1-46.3); Red Blood Cell Count 4.16 M/mm3 (3.80-5.20); White Blood Cell Count 6.31 K/mm3 (4.00-11.30)
[2024-10-13 20:31] LABS: Ethanol (Alcohol), Blood, Med 202 mg/dL; Salicylate <1.7 mg/dL (2.8-20.0)
[2024-10-13 20:36] LABS: Acetaminophen, Random <2.0 ug/mL (10.0-30.0); Alanine Aminotransfer (ALT/SGP 21 U/L (12-78); Albumin/Globulin Ratio 1.5 (0.8-1.8); Alk Phos 39 U/L (50-136); Anion Gap 11 mmol/L (3-11); Aspartate Aminotrans (AST/SGOT 17 U/L (12-37); Bilirubin, Total 0.3 mg/dL (0.1-1.0); Blood Urea Nitrogen 6 mg/dL (8-24); Bun/Creatinine Ratio 8.1 (12.0-20.0); CO2, Blood 22 mmol/L (21-32); Calcium, Blood 8.5 mg/dL (8.5-10.1); Chloride, Blood 112 mmol/L (98-108); Creatinine, Blood 0.75 mg/dL (0.40-1.00); Globulin, Blood 2.7 g/dL (2.2-4.0); Glomerular Filtration Rate 105 (60-); Glucose, Blood 125 mg/dL (70-99); Potassium, Blood 3.2 mmol/L (3.5-5.5); Sodium, Blood 142 mmol/L (136-145); Total Protein, Blood 6.7 g/dL (6.4-8.2)
[2024-10-13 21:06] LABS: Source, Urine Clean Catch
[2024-10-13 21:09] LABS: Appearance, Urine Clear (Clear); Bilirubin, Urine Neg (Neg); Blood, Urine Neg (Neg); Color, Urine Yellow (P-Yellow); Glucose Qualitative, Urine Neg (Neg); Ketones, Urine Neg (Neg); Leukocyte Esterase, Urine Neg (Neg); Nitrite, Urine Neg (Neg); Protein, Urine Neg (Neg); Specific Gravity, Urine 1.015 (1.003-1.022); Urobilinogen, Urine NORM (Normal)
[2024-10-13 21:23] LABS: U Amphetamine Screen Not Detected; U Barbituate Screen Not Detected; U Benzodiazapine Screen Not Detected; U Buprenorphine Screen Not Detected; U Cannabinoids Screen Not Detected; U Cocaine Screen Not Detected; U Methadone Screen Not Detected; U Methamphetamine Screen Not Detected; U Opiates Screen Not Detected; U Oxycodone Screen Not Detected; U Phencyclidine Screen Not Detected
[2024-10-13] MEDS ORDERED: Mag Hydrox/AL Hydrox/Simeth 30 ML UDC PO ONE (22:00)
[2024-10-13] MEDS ORDERED: Acetaminophen 325 MG TABLET PO PRN (22:15)
[2024-10-13] MEDS ORDERED: Calcium Carbonate 500 MG Tab Chew PO PRN (22:15)
[2024-10-13] MEDS ORDERED: Potassium Chloride 40 MEQ in NS 250 ML IV ONE (22:19)
[2024-10-13 22:21] LABS: Magnesium, Blood 2.8 mg/dL (1.6-2.4)
[2024-10-14] VITALS (8 sets, daily range): BP systolic 90–115; BP diastolic 53–82
[2024-10-14] MEDS ORDERED: MELATONIN5 M1 (00:46)
[2024-10-14] MEDS ORDERED: LITH300ER PO (00:46)
[2024-10-14] MEDS ORDERED: LORazepam 2 MG/ML 1ML Injection IV PRN (02:45)
--- NOTE | 2024-10-14 03:29 | NUR ---
ASSUMPTION OF CARE REPORT RECIEVED FROM HEMAL SILVA RN. PT ARRIVED TO PCU AROUND 0033. PT TRANSFERED FROM [facility] TO PCU BED WITH SBA. PT A&O X4, ANXIOUS BUT COOPERATIVE TO CARE. HR IN THE 70'S, SINUS RHYTHM, QT OF 0.42. PT REPORTS CHEST DISCOMFORT BUT REPORTS IT HAS BEEN PRESENT FOR AWHILE AND IT COMES AND GOES, SHE DOES HAVE HX OF SEVERE ANXIETY. SBP STABLE. O2 >92% ON RA, DENIES SOB, L/S CLEAR T/O. PT UP TO BATHROOM WITH NURSE SUPERVISION. SUICIDE RISK COMPLETED. PT HIGH RISK. PT REPORTS SI WITH ATTMEPT LAST NIGHT. SHE DENIES SI AT THIS TIME. 1:1 SITTER PRESEMT IN ROOM WITH PT. WILL MONITOR PT.
[2024-10-14 03:58] LABS: BASOPHILS ABSOLUTE AUTO 0.04 K/mm3 (0.00-0.23); BASOPHILS PERCENT AUTO 1 % (0-2); EOSINOPHILS ABSOLUTE AUTO 0.02 K/mm3 (0.00-0.68); EOSINOPHILS PERCENT AUTO 0 % (0-6); Hematocrit 40.5 % (33.0-51.0); Hemoglobin 13.4 g/dL (11.5-16.0); IMMATURE GRAN ABSOLUTE AUTO 0.01 K/mm3 (0.00-0.10); IMMATURE GRAN PERCENT AUTO 0 % (0-1); LYMPHOCYTES ABSOLUTE AUTO 0.99 K/mm3 (0.84-5.20); LYMPHOCYTES PERCENT AUTO 19 % (21-46); MONOCYTES ABSOLUTE AUTO 0.33 K/mm3 (0.16-1.47); MONOCYTES PERCENT AUTO 6 % (4-13); Mean Corpuscular HGB 31.8 pg (26.0-34.0); Mean Corpuscular HGB Conc 33.1 g/dL (31.5-36.5); Mean Corpuscular Volume 96 fL (80-100); Mean Platelet Volume 9.5 fL (9.1-12.4); NEUTROPHILS ABSOLUTE AUTO 3.84 K/mm3 (1.96-9.15); NEUTROPHILS PERCENT AUTO 73 % (41-73); Platelet Count 227 K/mm3 (150-400); RDW Standard Deviation 45.7 fL (35.1-46.3); Red Blood Cell Count 4.22 M/mm3 (3.80-5.20); White Blood Cell Count 5.23 K/mm3 (4.00-11.30)
[2024-10-14 04:19] LABS: Albumin, Blood 3.9 g/dL (3.4-5.0); Albumin/Globulin Ratio 1.4 (0.8-1.8); Bilirubin, Total 0.3 mg/dL (0.1-1.0); Calcium, Blood 8.2 mg/dL (8.5-10.1); Creatinine, Blood 0.55 mg/dL (0.40-1.00); Globulin, Blood 2.7 g/dL (2.2-4.0); Magnesium, Blood 2.2 mg/dL (1.6-2.4); Potassium, Blood 4.1 mmol/L (3.5-5.5); Total Protein, Blood 6.6 g/dL (6.4-8.2)
--- NOTE | 2024-10-14 05:55 | NUR ---
SHIFT SUMMARY PT A&O X4, ANXIOUS, COOPERATIVE TO CARE. HR 60'S-70'S, SINUS RHYTHM. SBP STABLE. NO NEW CP/PRESSURE, NUMB/TINGLING. O2 >90% ON RA, DENIES SOB. PT UP TO BATHROOM WITH NURSE SUPERVISION T/O SHIFT. PT HAS HAD MULTIPLE EPISODES OF NAUSEA AND VOMITTING. SHE HAS ORDER FOR TUMS, REACHED OUT TO SEE IF PT WOULD BE OKAY TO HAVE ZOFRAN. PER PROVIDER CONCERNS FOR QT PROLONGATION, HOLDING OFF ON OTHER ANTIEMICS FOR NOW TO MONITOR RHYTHM. PT TOLERATING SMALL SIP OF WATER. NO ACUTE CHANGES T/O SHIFT. PT RESTING IN BED MOST OF SHIFT. WILL MONITOR PT AND REPORT TO ONCOMING RN.
--- NOTE | 2024-10-14 07:41 | NUR ---
ASSUMPTION NOTE: THIS RN TO ASSUME CARE OF PATIENT. PATIENT IS LAYING IN BED,EASILY AROUSABLE. PATIENT DENIED ANY CHEST PAIN/PRESSURE OR FEELING SHORT OF BREATH. TRANSFFERED TO THE [facility] WITH ASSISTANCE, STEADY GAIT. CONTINUES TO BE NAUSEAOUS AND OCCASIONAL BOUTS OF VOMITTING.
--- NOTE | 2024-10-14 10:00 | NUR ---
ROUNDED: MD ROUNDED AND CHATTED WITH PATIENT ABOUT ADJUST MEDICATIONS AND GETTING ADMITTED TO THE [facility] ONCE SHE IS MEDICALLY CLEARED FROM PCU.
--- NOTE | 2024-10-14 11:23 | NUR ---
PATIENT UPDATE: PATIENT ASKED TO CALL HER KIDS AND WAS NOTIFIED THE ONLY NUMBER WE HAD WAS HER EMERGENCY CONTACT, ANA FLYNN. SHE CALLED AND SPOKE WITH HER CHILDREN & WAS NOTIFED SHE WOULDN'T BE ABLE TO LEAVE UNTIL A COUPLE DAYS & UNTIL THE PHYSICATRIST SAW HER. SHOWERED AND DID WELL. IS BACK IN BED, BED IN LOWEST POSITION & 1:1 SITTER IN THE ROOM.
--- NOTE | 2024-10-14 14:29 | NUR ---
FAMILY BEDSIDE: FAMILY AND PATIENT'S KIDS CAME TO BEDSIDE TO VISIT.
--- NOTE | 2024-10-14 16:52 | NUR ---
SHIFT SUMMARY: PATIENT IS ALERT AND ORIENTED X4 & COOPERATIVE WITH HER CARE, IS ONE TELE SHOWING SINUS RYTHM RATE IN 70'S. SATTING >92% ON ROOM AIR, EVEN & UNLABROED RESPIRATIONS AT REST. PATIENT RESTED THROUGHOUT SHIFT AND HAD FAMILY COME IN TO VISIT, SEE PREVIOUS NOTES. PATIENT AWARE SHE IS ON AN INVOUNTARY HOLD AND THE SOONEST SHE WILL LEAVE WILL BE TUESDAY. ONCE SHE IS MEDICALLY CLEARED SHE WILL BE ADMITTED TO THE [facility]. PATIENT SHOWERED TODAY & IS INDEPENDENT IN THE ROOM. HAS A 1:1 SITTER THROUGHOUT THE SHIFT. DENIES ANY NEEDS AT THIS TIME, BED IN LOWEST POSITION.
--- NOTE | 2024-10-14 23:42 | NUR ---
SHIFT SUMMARY- NO ACUTE CHANGES DENIES SI AT THIS TIME. VITALS AND OTHER BODY SYSTEMS WNL. 1;1 SITTER REMAINS AT BEDSIDE.
[2024-10-15 04:59] VITALS: BP 98/69
[2024-10-15 06:33] LABS: Cholesterol 121 mg/dL (50-200); HDL Cholesterol 60 mg/dL (>39); LDL/HDL RATIO 0.8; Low Density Lipoprotein Chol 47 mg/dL (0-110); Triglycerides 68 mg/dL (30-140); Very Low Density Lipoprot Chol 13 mg/dL (6-28)
[2024-10-15 06:58] LABS: BASOPHILS ABSOLUTE AUTO 0.05 K/mm3 (0.00-0.23); BASOPHILS PERCENT AUTO 1 % (0-2); EOSINOPHILS ABSOLUTE AUTO 0.14 K/mm3 (0.00-0.68); EOSINOPHILS PERCENT AUTO 2 % (0-6); Hematocrit 40.7 % (33.0-51.0); Hemoglobin 13.2 g/dL (11.5-16.0); IMMATURE GRAN ABSOLUTE AUTO 0.01 K/mm3 (0.00-0.10); IMMATURE GRAN PERCENT AUTO 0 % (0-1); LYMPHOCYTES ABSOLUTE AUTO 2.24 K/mm3 (0.84-5.20); LYMPHOCYTES PERCENT AUTO 35 % (21-46); MONOCYTES ABSOLUTE AUTO 0.45 K/mm3 (0.16-1.47); MONOCYTES PERCENT AUTO 7 % (4-13); Mean Corpuscular HGB 31.8 pg (26.0-34.0); Mean Corpuscular HGB Conc 32.4 g/dL (31.5-36.5); Mean Corpuscular Volume 98 fL (80-100); Mean Platelet Volume 9.6 fL (9.1-12.4); NEUTROPHILS ABSOLUTE AUTO 3.48 K/mm3 (1.96-9.15); NEUTROPHILS PERCENT AUTO 55 % (41-73); Platelet Count 219 K/mm3 (150-400); RDW Coefficient Variation 12.9 % (11.7-14.2); RDW Standard Deviation 45.8 fL (35.1-46.3); Red Blood Cell Count 4.15 M/mm3 (3.80-5.20); White Blood Cell Count 6.37 K/mm3 (4.00-11.30)
[2024-10-15 07:06] LABS: Bun/Creatinine Ratio 24.4 (12.0-20.0); Calcium, Blood 8.8 mg/dL (8.5-10.1); Creatinine, Blood 0.66 mg/dL (0.40-1.00); Potassium, Blood 3.8 mmol/L (3.5-5.5)
[2024-10-15 07:56] VITALS: BP 102/65
--- NOTE | 2024-10-15 08:48 | NUR ---
INITIAL ASSESSMENT: Patient is awake alert and oriented x4. She states she had her medications changed at home and this lead to the feelings of hopelessness, she denies any SI at this time. HRR. LS CTA. Biox WNL on RA. Bt+. PPP. VSS. She is medically cleared from a poision control stand point so the plan is to transfer her over to adult U. Patient verbalizes understanding of the plan and is hopeful this will help with her mood. AM meds given. [facility] has called to let us know they are ready for her when DC orders are placed. Dr. Miller notified. Patient resting comfortably denies needs at this time.
[2024-10-15] MEDS ORDERED: ValACYClovir HCL 500 MG Tab PO SCH (09:00)
[2024-10-15] MEDS ORDERED: Cyanocobalamin 1000 MCG/ML 1ML Vial IM SCH (09:00)
[2024-10-15] MEDS ORDERED: Folic Acid 1 MG in NS 50 ML IV SCH (09:00)
[2024-10-15] MEDS ORDERED: Calcium Carbon500 MG PO (09:38)
[2024-10-15] MEDS ORDERED: ACET325 PO (09:38)
[2024-10-15] MEDS ORDERED: B-12 COMPL1000 MCG/2 IM (09:39)
[2024-10-15] MEDS ORDERED: FOLI1 PO (09:39)
--- NOTE | 2024-10-15 10:30 | NUR ---
TRANSFER TO U: Report was given to U RN. DC orders were given to patient and she verbalized understanding. She ambulated over to U with RN and Security.
[2024-10-15] MEDS ORDERED: Venlafaxine HCl50 MG PO (12:01)
[2024-10-15] MEDS ORDERED: PROM25 PO (12:02)
[2024-10-15] MEDS ORDERED: LITH300C PO (12:02)
== END 2024-10-15 11:00 | DRG 918 ==
LOC: ER 19:37 → PCU 19:38
PROVIDERS: Internal Medicine; Student in an Organized Health Care Education/Training Program; ADMIT Student in an Organized Health Care Education/Training Program
DX: T43.3X2A Poisoning by phenothiazine antipsychotics and neuroleptics, intentional self-harm, initial encounter (principal); F50.20 Bulimia nervosa, unspecified; T43.212A Poisoning by selective serotonin and norepinephrine reuptake inhibitors, intentional self-harm, initial encounter; G43.909 Migraine, unspecified, not intractable, without status migrainosus; F31.9 Bipolar disorder, unspecified; B00.9 Herpesviral infection, unspecified; D50.0 Iron deficiency anemia secondary to blood loss (chronic); F17.210 Nicotine dependence, cigarettes, uncomplicated; F12.10 Cannabis abuse, uncomplicated; F41.9 Anxiety disorder, unspecified; E87.6 Hypokalemia; E03.9 Hypothyroidism, unspecified; F43.10 Post-traumatic stress disorder, unspecified; F10.129 Alcohol abuse with intoxication, unspecified; Z87.42 Personal history of other diseases of the female genital tract; Z91.030 Bee allergy status; Z98.890 Other specified postprocedural states; Z90.710 Acquired absence of both cervix and uterus; Z90.722 Acquired absence of ovaries, bilateral; Z87.59 Personal history of other complications of pregnancy, childbirth and the puerperium; Z68.22 Body mass index [BMI] 22.0-22.9, adult; Z88.8 Allergy status to other drugs, medicaments and biological substances; Z79.899 Other long term (current) drug therapy; X58.XXXA Exposure to other specified factors, initial encounter
CPT/HCPCS: 36415; 80048; 80053; 80061; 80320; 81003; 81025; 82607; 82746; 83036; 83735; 84443; 85025; 86592; 93005; 93010; 96374; 99285-25; A9270; G0378; G0480; J2060; J3420; J3480; J7050

== ENCOUNTER 2024-10-15 08:45 | Inpatient (IN) | payer OTHER ==
[~2024-10-15] VITALS: Ht 157.5 cm; Wt 52.5 kg
[~2024-10-15 08:45] MED LIST changes: +LITH300ER PO; +MELATONIN5 M1
[2024-10-15] MEDS ORDERED: ACET325 PO (09:38)
[2024-10-15] MEDS ORDERED: Calcium Carbon500 MG PO (09:38)
[2024-10-15] MEDS ORDERED: B-12 COMPL1000 MCG/2 IM (09:39)
[2024-10-15] MEDS ORDERED: FOLI1 PO (09:39)
[2024-10-15 11:25] VITALS: BP 109/79
[2024-10-15] MEDS ORDERED: Venlafaxine HCl50 MG PO (12:01)
[2024-10-15] MEDS ORDERED: PROM25 PO (12:02)
[2024-10-15] MEDS ORDERED: LITH300C PO (12:02)
[2024-10-15 12:11] VITALS: BP 109/79
--- NOTE | 2024-10-15 14:10 | NUR ---
ADMISSION SUMMARY PT ARRIVES TO [facility] WITH MHA AND SECURITY, COMING FROM U 03. SKIN CHECK COMPLETED BY THIS RN AND ALISHA, NO NOTED ISSUES. PT DRESSED DOWN IN THE GREEN SCRUBS AND ALL BELONGINGS COLLECTED AND PUT INTO SECURE STORAGE AND SAFE. PT WAS ADMITTED THROUGH THE ER ON 10/13/24. HER S/O CALLED 911 AFTER FINDING OUT SHE HAD INGESTED APPROX 4 PROMETHAZINE AND APPROX 10 VENAFLAXIN, UNKNOWN DOSE. PT STS SHE REALLY DIDN'T WANT TO OR HURT HERSELF BUT IN A FLEETING MOMENT SHE JUST GAVE INTO IT. SHE STATES SHE HAS 4 KIDS: 18, 9, 8 & 1 1/2 YR. THE 18 YR OLD RECENTLY MOVED OUT AND PT HAS FELT INCREASED STRESS WITH THE YOUNGER CHILDREN, APPARENTLY THE 18 YR OLD HELPED A LOT WITH THEM. SINCE SHE GAVE TO THE YOUNGEST SHE HAS HAD A LOT OF MENTAL HEALTH ISSUES, SHE HASE BEEN SEEING JOSE OLVERA FOR THERAPY AND MEDS. PT FEELS THE VENAFLAXINE HAS GIVEN HER MULTIPLE SIDE EFFECTS AND PROVIDER HAS BEEN WORKING TO ADJUST THEM, APPROX 2 WEEKS SHE STARTED ON LITHIUM AND FEELS IT MAY BE HELPING. 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 SHE IS ENGAGED TO HER S/O AND LIVES AT HOME WITH ALL HER FAMILY. HE SOUNDS SUPPORTIVE ON THE PHONE AND HE HAS THE CHILDREN. PT AND S/O WERE TOLD BY ACID[employer]ER HELPER THAT THE KIDS COULD COME VISIT, THIS RN EXPLAINED POLICY AND HE STATED UNDERSTANDING ALTHOUGH DISSAPOINTED. PT WILL BE RECEIVING Q15 MIN SAFETY CHECKS DURING HER STAY.
[2024-10-15] MEDS ORDERED: HydrOXYzine Pamoate 50 MG Cap PO PRN (14:55)
[2024-10-15] MEDS ORDERED: Ibuprofen 600 MG Tab PO PRN (14:55)
[2024-10-15] MEDS ORDERED: Polyethylene Glycol 3350 17 gm PO PRN (15:00)
[2024-10-15] MEDS ORDERED: LORazepam 2 MG/ML 1ML Injection IM PRN (15:00)
[2024-10-15] MEDS ORDERED: TraZODone HCl 50 MG Tab PO PRN (15:00)
[2024-10-15] MEDS ORDERED: OLANZapine ODT 10 MG Tab MM PRN (15:00)
[2024-10-15] MEDS ORDERED: LORazepam 2 MG Tab PO PRN (15:00)
[2024-10-15] MEDS ORDERED: Haloperidol 5 MG Tab PO PRN (15:00)
[2024-10-15] MEDS ORDERED: Aluminum Hydroxide 320MG/5ML 473 ML PO PRN (15:05)
[2024-10-15] MEDS ORDERED: Melatonin 3 MG Tab PO PRN (15:05)
[2024-10-15] MEDS ORDERED: Haloperidol Lactate Inj. 5 MG/ML Injection IM PRN (15:05)
[2024-10-15] MEDS ORDERED: Calcium Carbonate 500 MG Tab Chew PO PRN (15:05)
[2024-10-15] MEDS ORDERED: DiphenhydrAMINE HCl 50 MG Cap PO PRN (15:05)
[2024-10-15] MEDS ORDERED: Acetaminophen 325 MG TABLET PO PRN (15:05)
[2024-10-15] MEDS ORDERED: DiphenhydrAMINE HCl 50 MG/ML 1ML Vial IM PRN (15:05)
[2024-10-15] MEDS ORDERED: Ondansetron 4 MG SoluTab MM PRN (15:10)
--- NOTE | 2024-10-15 17:25 | NUR ---
SHIFT NOTE PT HAS BEEN ACTIVE WITH MILIEU SINCE HER ADMISSION TODAY, POLITE AND COOPERATIVE, NO ISSUES IDENTIFIED SINCE THAT TIME.
[2024-10-15 20:00] VITALS: BP 113/78
[2024-10-15] MEDS ORDERED: Lithium Carbonate 300 MG Cap PO SCH (21:00)
--- NOTE | 2024-10-16 04:54 | NUR ---
SHIFT SUMMARY: PT A/O X4. AT THE DANIEL OF THE SHIFT PT WAS IN BED SLEEPING. AWOKE PT TO INTERVIEW. PT IS DEPRESSED. STATES THAT SHE IS NOT SI, HI AND AVH. " I JUST WANT TO SLEEP". IS DISINTERESTED IN CONVERSATING. DID NOT GET UP FOR GROUP. DID GET UP FOR SNACK. THEN WENT BACK TO BED FOR THE NIGHT. SLEPT WELL THROUGH THE NIGHT. WILL CONTINUE TO MONITOR.
[2024-10-16 08:17] VITALS: BP 98/72
[2024-10-16] MEDS ORDERED: Multivitamins 1 Tab PO SCH (09:00)
[2024-10-16] MEDS ORDERED: ValACYClovir HCL 500 MG Tab PO SCH (09:00)
[2024-10-16] MEDS ORDERED: Folic Acid 1 MG TAB PO SCH (09:00)
--- NOTE | 2024-10-16 09:34 | NUR ---
SHIFT ASSESSMENT: PT WAS RESTING IN BED AT THE TIME OF THE INTERVIEW. SHE DENIED SI, HI AND AVH. PT REPORTED MODERATE ANDXIETY, PAIN TO HER HEAD 6/10W AND BACK PAIN OF 4/10w, SHE WAS GIVEN TYLENOL 650MG PO FOR THE HEADACHE. SHE REPORTED HER MOOD , "OK..GOOD, JUST TIRED." HER AFFECT WAS CONGRUENT TO STATED MOOD. SHE HAS BEEN COOPERTIVE WITH CARES AND PLEASANT. PT IS PRESENTLY PARTICIPATING IN GROUP.
--- NOTE | 2024-10-16 13:14 | NUR ---
IMPORTANT HOSPITAL FOLLOW UP APPOINTMENT INFORMATION Patient is scheduled to meet with AMY Tapia on 10/18/24 at 1500 at [facility] // [address], [place] [address] // [phone] SW entered appointment information into patient's discharge packet
--- NOTE | 2024-10-16 17:34 | NUR ---
SHIFT NOTE PT DENIES SI/HI/AVTH THIS SHIFT. SHE SPENT GROUP TIME ISOLATING IN HER ROOM AND DID NOT ATTEND. SHE REQUESTED PHENERGAN AND THIS RN EXPLAINED THAT SHE HAD ZOFRAN ORDERED FOR HER NAUSEA BUT PT REFUSED IT. SHE WAS UP FOR ALL MEALS AND SPENT SOME TIME IN THE HALLWAY AND GROUP ROOM PRIOR TO DINNER. ENCOURAGED PT TO ATTEND GROUPS BUT PT WAS NOT INTERESTED THIS SHIFT. SHE HAS AN APPOINTMENT SET UP FOR HER MEDS AT [facility] 10/18/24 AAT 1500.
[2024-10-16 20:00] VITALS: BP 112/81
[2024-10-16] MEDS ORDERED: Lithium Carbonate 300 MG Cap PO SCH (21:00)
--- NOTE | 2024-10-17 04:21 | NUR ---
SHIFT SUMMARY PT IN BED AT START OF SHIFT, AWAKES TO VERBAL STIMULI. PT CURRENTLY DENIES ANY SI, HI, THOUGHTS OF SELF HARM OR HALLUCINATIONS. SHE STATES HER MOOD IS "GOOD". SHE RATED HER CURRENT DEPRESSION AT 4/10, BUT STATES IT IS BECAUSE SE MISSES HER KIDS. PT HAD EVENING SNACK, WAS COMPLIANT WITH MEDS. SHE RECEIVED PRN TRAZODONE AND MELATONIN AND WENT TO BED SHORTLY AFTER SNACK. SHE HAS APPEARED TO SLEEP WELL, WITH RESPIRATIONS CONFIRMED. Q15 MINUTE CHECKS TO CONTINUE.
[2024-10-17 08:17] VITALS: BP 104/70
--- NOTE | 2024-10-17 16:47 | NUR ---
SHIFT SUMMARY PT A/O X4; PLEASANT AND COOPERATIVE WITH CARE. DENIES SI, HI, AVTH. PT ATTENDED GROUPS AND MEALS THIS SHIFT. SHE C/O SOME INCREASED ANXIETY AND TREATED PER EMR. PT VISITING WITH HER SISTER AT THIS TIME. SHE CONTINUES TO BE MONITORED Q15 FOR SAFETY AND WELLNESS.
[2024-10-17 20:16] VITALS: BP 103/77
--- NOTE | 2024-10-18 04:35 | NUR ---
SHIFT SUMMARY PATIENT RESTING IN ROOM VERBALIZED THAT SHE IS WORRIED AND ANXIOUS FEELING IF SHE IS HAVING MAR GOING OF INSIDE. VERBALIZED THAT ZYPREXA HELPFUL. DENIES SI, HI, OR AVH. PATIENT VISITING WITH PEERS DURING SNACK. COOPERATIVE WITH MEDICATIONS AND APPEARS TO BE SLEEPING WELL T/O NIGHT RESP EVEN AND UNLABORED. CONTINUE TO MONITOR Q15MIN
[2024-10-18 08:11] VITALS: BP 86/51
--- NOTE | 2024-10-18 09:11 | NUR ---
IMPORTANT DISCHARGE INFORMATION PATIENT'S FAMILY WILL BE HERE TODAY TO PICK HER UP AROUND 1PM. FOLLOW UP APPOINTMENT WITH PCP AT [facility] 10/18/2024 AT 1700. PHARMACY: [facility]
[2024-10-18] MEDS ORDERED: TRAZ150T57 PO (12:19)
--- NOTE | 2024-10-18 12:59 | NUR ---
DISCHARGE NOTE PT GIVNE D/C INSTRUCTIONS AND FORM SIGNED. MEDICATIONS SENT TO [facility], WITH TRAZADONE 150 MG PO AT BEDTIME #15, PER V/O GOMEZ, CALLED IN. PT STATES UNDERSTANDING OF MEDICATION CHANGES AND AGREES TO ATTEND HER F/U MEETING WITH JOSE OLVERA AT [facility] AT 1500 TODAY. BELONGINGS RETURNED TO PT BY MHA AND PT DRESSED SELF AND AMBULATED OUT TO FAMILY FOR TRANSPORT HOME.
[2024-11-12] MEDS ORDERED: Cyanocobalamin 1000 MCG/ML 1ML Vial IM SCH (09:00)
== END 2024-10-18 13:00 | disposition home or self-care (01) | DRG 885 ==
LOC: BHU 08:45
PROVIDERS: ADMIT Psychiatry & Neurology Psychiatry
DX: F33.1 Major depressive disorder, recurrent, moderate (principal); F43.25 Adjustment disorder with mixed disturbance of emotions and conduct; F17.210 Nicotine dependence, cigarettes, uncomplicated; F41.9 Anxiety disorder, unspecified; Z98.890 Other specified postprocedural states; Z79.899 Other long term (current) drug therapy; Z91.038 Other insect allergy status; Z88.8 Allergy status to other drugs, medicaments and biological substances
CPT/HCPCS: 82947; A9270

== ENCOUNTER 2025-06-08 19:22 | Emergency (ER) | payer OTHER ==
[~2025-06-08] VITALS: Ht 157.5 cm; Wt 47.6 kg
[~2025-06-08 19:22] MED LIST changes: +ACET325 PO; +B-12 COMPL1000 MCG/2 IM; +FOLI1 PO; +LITH300C PO; +TRAZ150T57 PO; +Venlafaxine HCl50 MG PO
[2025-06-08 19:37] VITALS: BP 115/78
[2025-06-08] MEDS ORDERED: CLON.5 PO (21:50)
== END 2025-06-08 22:00 | disposition home or self-care (01) ==
LOC: ER 19:22
DX: F41.9 Anxiety disorder, unspecified (principal); F17.210 Nicotine dependence, cigarettes, uncomplicated; Z91.030 Bee allergy status; Z88.8 Allergy status to other drugs, medicaments and biological substances; Z79.899 Other long term (current) drug therapy
CPT/HCPCS: 99282; A9270